=== PATIENT | male | born 1975 | race Native Hawaiian/Other Pacific Islander ===

== ENCOUNTER 2018-06-25 06:01 | Emergency (ER) | payer OTHER ==
[2018-06-25 06:16] VITALS: TEMP 97.6
[2018-06-25] MEDS ORDERED: Sodium Chloride 0.9% 1,000 ML IV ONE (06:24)
[2018-06-25] MEDS ORDERED: Morphine 4 MG/ML VIAL ONE ×2 (06:52→07:33)
[2018-06-25 06:54] LABS: BASO % 0.2 % (0.0-2.0); EOS # 0.2 K/uL (0.0-0.7); EOS % 0.9 % (0.0-4.0); HEMOGLOBIN 14.3 g/dL (12.0-18.0); LYMPH # 3.1 K/uL (1.0-4.3); LYMPH % 17.1 % (20.0-40.0); MEAN CELL VOLUME 85.4 fL (80.0-94.0); MEAN CORPUSCULAR HEMOGLOBIN 28.2 pg (27.0-31.0); MEAN CORPUSCULAR HGB CONC 33.1 g/dL (33.0-37.0); MEAN PLATELET VOLUME 10.1 fL (7.2-11.7); MONO # 0.8 K/uL (0.0-0.8); MONO % 4.6 % (0.0-10.0); NEUT # 14.1 K/uL (1.8-7.0); NEUT % 77.2 % (50.0-75.0); NRBC % 0.1 % (0.0-2.0); RBC 5.06 Mil/uL (4.40-5.90); RED CELL DISTRIBUTION WIDTH 13.3 % (11.5-14.5); WHITE BLOOD COUNT 18.3 K/uL (4.8-10.8)
[2018-06-25 06:55] LABS: URINE BILIRUBIN NEGATIVE (NEGATIVE); URINE CLARITY Clear (Clear); URINE COLOR Yellow (YELLOW); URINE GLUCOSE (UA) 3+ mg/dL (Normal); URINE LEUKOCYTE ESTERASE NEG Leu/uL (Negative); URINE PROTEIN NEGATIVE (NEGATIVE); URINE UROBILINOGEN NORMAL mg/dL (0.2-1.0)
[2018-06-25] MEDS ORDERED: Morphine 4 MG/ML VIAL IV ONE (06:57)
[2018-06-25 06:59] LABS: URINE BLOOD NEGATIVE (NEGATIVE)
--- NOTE | 2018-06-25 07:25 | C.PDOC ---
History Of Present Illness 42 year old male presents to the ED for evaluation of new onset epigastric pain since 329. Associated complaints include nausea and vomiting, non-bloody. Reports the last time he ate was at 2030 and woke up this morning with the pain. Notes pain radiates to mid back. States "we ate outside food". Denies any ETOH use. Denies any other associated complaints. PSH negative. NEW ONSET EPIG PAIN SINCE 033. LAST ATE @ 0830, AWOKE W PAIN. +RADIATION MID BACK. DENIES ETOH USE. "WE ATE OUTSIDE FOOD". +NV, NO BLOOD. NO OTHER ASSOC SX. PSH NEG EXAM MILD DIST S/P MORPHINE, NAD HEENT ANICTERIC MMM ABD MILD EPIG TEND SOFT NO R/G BACK NEG GOOD TURGOR REMAINDER NEG Time Seen by Provider: 06/25/18 07:12 Chief Complaint (Nursing): Abdominal Pain History Per: Patient History/Exam Limitations: no limitations Onset/Duration Of Symptoms: Hrs Current Symptoms Are (Timing): Still Present Location Of Pain/Discomfort: Epigastric Radiation Of Pain To:: Back Associated Symptoms: Nausea, Vomiting. denies: Fever, Chills, Diarrhea Past Medical History Reviewed: Historical Data, Nursing Documentation, Vital Signs Vital Signs: Last Vital Signs Temp 97.6 F 06/25/18 06:11 Pulse 73 06/25/18 06:11 Resp 20 06/25/18 06:11 BP 142/80 06/25/18 06:11 Pulse Ox 97 06/25/18 06:11 - Medical History PMH: Diabetes Surgical History: No Surg Hx Family History: States: No Known Family Hx - Social History Hx Alcohol Use: No Hx Substance Use: No Review Of Systems Except As Marked, All Systems Reviewed And Found Negative. Constitutional: Negative for: Fever, Chills Gastrointestinal: Positive for: Nausea, Vomiting, Abdominal Pain (epigastric). Negative for: Diarrhea Genitourinary: Negative for: Dysuria, Hematuria Physical Exam - Physical Exam Appears: Non-toxic, No Acute Distress, Other (Mild distress S/P morphine ) Skin: Warm, Dry, No Rash, Other (good turgor ) Head: Normacephalic Eye(s): bilateral: Normal Inspection, Other (anicteric) Nose: Normal Oral Mucosa: Moist Cardiovascular: Rhythm Regular Respiratory: No Rales, No Rhonchi, No Wheezing, Other (NARD) Gastrointestinal/Abdominal: Soft, Tenderness (mild epigastric tenderness ), No Distention, No Guarding, No Rebound Back: No CVA Tenderness, No Vertebral Tenderness, No Paraspinal Tenderness Extremity: Normal ROM Extremity: Bilateral: Atraumatic, Normal Color And Temperature, Normal ROM Neurological/Psych: Oriented x3, Normal Speech Gait: Steady ED Course And Treatment - Laboratory Results Result Diagrams: 06/25/18 06:50 06/25/18 07:42 ECG: Interpreted By Me ECG Rhythm: Sinus Rhythm Rate From EC O2 Sat by Pulse Oximetry: 97 Pulse Ox Interpretation: Normal - Radiology CXR: Interpreted by Me CXR Interpretation: Yes: No Acute Disease Progress - Re-Evaluation Re-evaluation Note: 06/25/18 08:53 IMPROVED COMPARED TO PRIOR. VSS. LABS WNL ADVISED DIET MODIFICATION, FU PMD 06/25/18 08:54 - Data Reviewed Data Reviewed: Lab, Diagnostic imaging, EKG, Old records Medical Decision Making Medical Decision Making: Plan - EKG - CXR - Pepcid 20mg IVP - Morphine 4mg IV - Zofran 4mg IVP - IV fluids Disposition Counseled Patient/Family Regarding: Studies Performed, Diagnosis, Need For Followup, Rx Given - Disposition Referrals: YOUR,PMD [Other] Disposition: HOME/ ROUTINE Disposition Time: 08:54 Condition: IMPROVED Prescriptions: Acetaminophen with Codeine [Tylenol with Codeine No. 3 300 mg-30 mg] 1 tab PO Q6 PRN #12 tab PRN Reason: Pain, Moderate (4-7) Famotidine [Pepcid AC] 10 mg PO QN #30 tablet Lansoprazole [Prevacid] 15 mg PO DAILY #30 ecc Ondansetron [Zofran Odt] 4 mg PO TID PRN #9 odt PRN Reason: Nausea/Vomiting Instructions: Gastritis (DC), Ulcer and Gastritis Diet Forms: [employer] (Turkmen) - Clinical Impression Clinical Impression: Vomiting, Epigastric pain - Scribe Statement The provider has reviewed the documentation as recorded by the Scribe Dorys Richey All medical record entries made by the Scribe were at my direction and perso vanessa dictated by me. I have reviewed the chart and agree that the record accurately reflects my personal performance of the history, physical exam, medical decision making, and the department course for this patient. I have also personally directed, reviewed, and agree with the discharge instructions and disposition.
[2018-06-25 07:41] VITALS: RESP 18
[2018-06-25 07:55] LABS: VENOUS BLOOD GAS BASE EXCESS -2.3 mmol/L (0.0-2.0); VENOUS BLOOD GAS PCO2 52 mmHg (40-60); VENOUS BLOOD GAS PO2 21 mm/Hg (30-55); VENOUS BLOOD PH 7.29 (7.32-7.43)
[2018-06-25 08:02] LABS: ALB/GLOB RATIO 1.5 (1.0-2.1); ALBUMIN 4.5 g/dL (3.5-5.0); ALT/SGPT 38 U/L (21-72); AST/SGOT 28 U/L (17-59); BLOOD UREA NITROGEN 14 mg/dL (9-20); CALCIUM 8.6 mg/dl (8.6-10.4); GFR NON-AFRICAN AMERICAN > 60; LIPASE 76 U/L (23-300)
[2018-06-25] MEDS ORDERED: Oxycodone/Acetaminophen 5/325 mg Tab PO STA (08:53)
[2018-06-25 08:59] VITALS: BP 109/52; PULSE 64; O2SAT 100
[2018-06-25] MEDS ORDERED: Oxycodone/Acetaminophen 5/325 mg Tab ONE (09:12)
--- NOTE | 2018-06-25 09:33 | RAD ---
Date of service: 06/25/2018 HISTORY: EPIG PAIN COMPARISON: None available. FINDINGS: LUNGS: Minor bibasilar atelectasis. PLEURA: No significant pleural effusion identified, no pneumothorax apparent. CARDIOVASCULAR: No aortic atherosclerotic calcification present. Normal cardiac size. No pulmonary vascular congestion. OSSEOUS STRUCTURES: No significant abnormalities. VISUALIZED UPPER ABDOMEN: Normal. OTHER FINDINGS: None. IMPRESSION: Minor bibasilar atelectasis.
--- NOTE | 2018-06-28 19:48 | CARD ---
APPROVED REPORT Date of service: 06/25/2018 EKG Measurement Heart [id number] <Conclusion> Normal sinus rhythm Nonspecific ST and T wave abnormality Prolonged QT Abnormal ECG
== END 2018-06-25 09:28 | disposition home or self-care (01) ==
LOC: C.ER 06:01
DX: R10.13 Epigastric pain (principal); R11.2 Nausea with vomiting, unspecified
CPT/HCPCS: 36415; 71045; 80053; 81001; 82803; 83690; 84484; 85025; 93005; 96361; 96374; 96375; 96376; 99285; J2270; J2405; J7030

== ENCOUNTER 2018-06-29 16:47 | Inpatient (IN) | payer OTHER ==
[2018-06-29 17:00] VITALS: BMI 26.2
--- NOTE | 2018-06-29 17:44 | C.PDOC ---
History Of Present Illness 42 y/o male with PMH DM presents to ED with c/o abdominal pain for 4 days. Notes the pain is epigastric and radiated to the back. Fever started today. Occasional nausea. Patient was seen at ED 4 days ago for same symptoms with labs within normal limits. Patient followed up with Dr. Hussain cabrales today who advised he come to ED for further evaluation. Normal BM today. Patient denies chest pain, sob, URI symptoms, vomiting, diarrhea, dysuria, hematuria or any other complaints at this time. <Kavitha Aaron - Last Filed: 06/29/18 18:31> History Per: Patient, Family History/Exam Limitations: no limitations Onset/Duration Of Symptoms: Days Current Symptoms Are (Timing): Still Present Associated Symptoms: Fever <Kavitha Aaron - Last Filed: 06/29/18 18:31> <Jordi Lund - Last Filed: 06/29/18 23:32> Time Seen by Provider: 06/29/18 17:34 Chief Complaint (Nursing): Fever Past Medical History Reviewed: Historical Data, Nursing Documentation, Vital Signs Vital Signs: Last Vital Signs Temp 100.6 F H 06/29/18 17:02 Pulse 98 H 06/29/18 17:02 Resp 18 06/29/18 17:02 BP 137/83 06/29/18 17:02 Pulse Ox 96 06/29/18 17:02 - Medical History PMH: Diabetes Surgical History: No Surg Hx Family History: States: No Known Family Hx - Social History Hx Alcohol Use: No Hx Substance Use: No <Kavitha Aaron - Last Filed: 06/29/18 18:31> Vital Signs: Last Vital Signs Temp 98.0 F 06/29/18 20:00 Pulse 68 06/29/18 20:00 Resp 19 06/29/18 20:00 BP 114/69 06/29/18 20:00 Pulse Ox 96 06/29/18 20:00 <Jordi Lund - Last Filed: 06/29/18 23:32> Review Of Systems Except As Marked, All Systems Reviewed And Found Negative. Constitutional: Positive for: Fever. Negative for: Chills Gastrointestinal: Positive for: Abdominal Pain. Negative for: Nausea, Vomiting, Diarrhea Genitourinary: Negative for: Dysuria, Hematuria Musculoskeletal: Negative for: Back Pain Skin: Negative for: Rash <Kavitha Aaron - Last Filed: 06/29/18 18:31> Physical Exam - Physical Exam Appears: Non-toxic, No Acute Distress Skin: Warm, Dry, No Rash Head: Atraumatic, Normacephalic Eye(s): bilateral: Normal Inspection, EOMI Nose: Normal Oral Mucosa: Moist Neck: Normal ROM, Supple Chest: Symmetrical Cardiovascular: Rhythm Regular Respiratory: Normal Breath Sounds, No Rales, No Rhonchi, No Wheezing Gastrointestinal/Abdominal: Soft, Tenderness (Epigastric), No Guarding, No Rebou nd Back: No CVA Tenderness Extremity: Normal ROM, No Pedal Edema, Capillary Refill (<2 seconds) Neurological/Psych: Oriented x3, Normal Speech, Normal Cognition <Kavitha Aaron - Last Filed: 06/29/18 18:31> ED Course And Treatment - Laboratory Results Result Diagrams: 06/29/18 18:01 06/29/18 18:01 O2 Sat by Pulse Oximetry: 96 (RA) Pulse Ox Interpretation: Normal Progress Note: Blood work, UA ordered. Tylenol, Toradol, Zofran, Protonix and IV fluids administered. Case endorsed to Dr Lund pending labs and CT. <Kavitha Aaron - Last Filed: 06/29/18 18:31> - Laboratory Results Result Diagrams: 06/29/18 18:01 06/29/18 18:01 - CT Scan/US CT abd/pel Other Rad Studies (CT/US): Read By Radiologist, Radiology Report Reviewed CT/US Interpretation: EXAM: CT Abdomen with IV contrast. CLINICAL HISTORY: EPIGASTRIC PAIN. TECHNIQUE: Axial computed tomography images of the abdomen and pelvis with intravenous contrast. 504.08 mGy-cm. CONTRAST: With; VISI 100 MLS. COMPARISON: None provided. FINDINGS: LUNG BASES: Small bilateral pleural effusions. Compressive atelectasis of the right lower lobe. LIVER: Unremarkable. GALLBLADDER AND BILE DUCTS: The gallbladder is distended, with associated wall thickening ( to 1.5 cm)and cholelithiasis. Findings are suspicious for acute cholecystitis. No biliary ductal dilatation is evident. PANCREAS: Unremarkable. SPLEEN: Unremarkable. ADRENAL GLANDS: Unremarkable. KIDNEYS, URETERS, AND BLADDER: The kidneys appear within normal limits. There is no hydronephrosis or hydroureter. No urinary calculi are seen. STOMACH AND BOWEL: Unremarkable appearance of the stomach and bowel. No evidence of bowel obstruction. No evidence suggesting enteritis or colitis. APPENDIX: No evidence of acute appendicitis on CT examination. PERITONEUM: No free fluid. No free air. LYMPH NODES: No lymphadenopathy is evident. VASCULATURE: No evidence of abdominal aortic aneurysm. BONES: No aggressive appearing osseous lesion. No acute osseous pathology evident. IMPRESSION: Findings suspicious for acute cholecystitis. Bilateral small pleural effusions. <Jordi Lund - Last Filed: 06/29/18 23:32> Disposition - Disposition Disposition Time: 18:39 <Kavitha Aaron - Last Filed: 06/29/18 18:31> Discussed With : Kyle Dawson Doctor Will See Patient In The: Hospital Counseled Patient/Family Regarding: Diagnosis - Disposition Disposition Time: 20:15 - POA Present On Arrival: None <Jordi Lund - Last Filed: 06/29/18 23:32> - Disposition Disposition: HOSPITALIZED Condition: STABLE - Clinical Impression Clinical Impression: Abdominal pain, Leukocytosis, Acute cholecystitis - PA / [employer] / Resident Statement MD/DO has reviewed & agrees with the documentation as recorded. - Scribe Statement The provider has reviewed the documentation as recorded by the Scribhollie Montgomery All medical record entries made by the Jamel were at my direction and personally dictated by me. I have reviewed the chart and agree that the record accurately reflects my personal performance of the history, physical exam, medical decision making, and the department course for this patient. I have also personally directed, reviewed, and agree with the discharge instructions and disposition. <Kavitha Aaron - Last Filed: 06/29/18 18:31>
[2018-06-29] MEDS ORDERED: Sodium Chloride 0.9% 1,000 ML IV ONE ×2 (17:45→19:31)
[2018-06-29 18:17] LABS: BASO % 0.2 % (0.0-2.0); EOS % 0.2 % (0.0-4.0); HEMOGLOBIN 13.2 g/dL (12.0-18.0); LYMPH # 1.3 K/uL (1.0-4.3); LYMPH % 6.4 % (20.0-40.0); MEAN CELL VOLUME 84.3 fL (80.0-94.0); MEAN CORPUSCULAR HEMOGLOBIN 28.7 pg (27.0-31.0); MONO # 1.7 K/uL (0.0-0.8); MONO % 8.2 % (0.0-10.0); NEUT # 17.2 K/uL (1.8-7.0); NRBC % 0.1 % (0.0-2.0); PLATELET COUNT 341 K/uL (130-400); RBC 4.61 Mil/uL (4.40-5.90); RED CELL DISTRIBUTION WIDTH 13.3 % (11.5-14.5); WHITE BLOOD COUNT 20.2 K/uL (4.8-10.8)
[2018-06-29] MEDS ORDERED: Sodium Chloride 0.9% 1,000 ML ONE ×2 (18:18→20:23)
[2018-06-29 18:28] LABS: ALT/SGPT 88 U/L (21-72); AST/SGOT 49 U/L (17-59); BLOOD UREA NITROGEN 9 mg/dL (9-20); CALCIUM 8.7 mg/dl (8.6-10.4); GFR NON-AFRICAN AMERICAN > 60; LIPASE 389 U/L (23-300); SQUAMOUS EPITHIAL < 1 /hpf (0-5); URINE BILIRUBIN NEGATIVE (NEGATIVE); URINE BLOOD 2+ (NEGATIVE); URINE CLARITY Clear (Clear); URINE COLOR Yellow (YELLOW); URINE GLUCOSE (UA) 3+ mg/dL (Normal); URINE LEUKOCYTE ESTERASE NEG Leu/uL (Negative); URINE PROTEIN 2+ mg/dL (NEGATIVE)
[2018-06-29] MEDS ORDERED: Iodixanol 320 MG/ML 100 ML BOTTLE IV ONE (18:51)
[2018-06-29 18:53] LABS: MONOCYTE 4 % (0-10); TOTAL CELLS COUNTED 100
[2018-06-29 18:54] LABS: LYMPHOCYTE 10 % (20-40); NEUTROPHIL 86 % (50-75); PLATELET ESTIMATE NORMAL (NORMAL)
[2018-06-29 18:56] LABS: BARBITURATES, UR NEGATIVE (NEGATIVE); BENZODIAZEPINES, UR NEGATIVE (NEGATIVE); PHENCYCLIDINE, UR NEGATIVE (NEGATIVE)
[2018-06-29 19:02] LABS: OPIATES, UR POSITIVE (NEGATIVE)
[2018-06-29] MEDS ORDERED: Piperacillin/Tazobact 3.375 gm 100 ML IVPB STA (20:03)
[2018-06-29] MEDS ORDERED: Piperacillin/Tazobact 3.375 gm 100 ML IVPB ONE (20:23)
[2018-06-29] MEDS: metroNIDAZOLE IV 500 mg/100 ml 500 MG/100 ML BAG IVPB STA ×2 (20:26→21:22)
[2018-06-29] MEDS ORDERED: metroNIDAZOLE IV 500 mg/100 ml 500 MG/100 ML BAG ONE (21:22)
[2018-06-29] MEDS ORDERED: Dextrose 5%-0.225% NS 1,000 ML IV ONE (21:32)
[2018-06-29] MEDS: Dextrose 5%/0.45% NS 1,000 ML IV SCH (21:39)
[2018-06-29] MEDS: (Novolin R) Insulin Human Regular 100 units/ml vial SC SCH (22:27)
--- NOTE | 2018-06-30 00:18 | CP.PCM.CON ---
History of Present Illness - History of Present Illness History of Present Illness: GENERAL SURGERY CONSULT NOTE FOR DR. ROBERSON 42yo M with PMHx of DM presents to the ED with epigastric abdominal pain. The pain began 4 days ago on Thursday. The patient had 4-5 episodes of vomiting at that time and came to the ED on 06/25. Pt was DCed from ED with prescriptions for zofran, pepcid, prevacid, tylenol with codeine. Pt went to his PMD office Dr. Sexton today and was sent to the ED. Patient denies any further episodes of nausea or vomiting. Denies diarrhea. Normal BMs. States the pain is located in epigastric area and occasionally radiates to the back. Pt states that initially his abdominal pain got better with the meds prescribed but today he didn't take any meds and the pain worsened. Patient denies any association with food or prior occurrences. PMHx: DM Surgeries: none Allergies: none Medications: metformin Social history: denies etoh, tobacco or illicit drug use Review of Systems - Review of Systems All systems: reviewed and no additional remarkable complaints except (as per HPI) Past Patient History - Infectious Disease Hx of Infectious Diseases: None - Past Social History Smoking Status: Never Smoked - ENDOCRINE/METABOLIC Hx Diabetes Mellitus Type 2: Yes - PSYCHIATRIC Hx Substance Use: No - ANESTHESIA Hx Anesthesia: No Meds Allergies/Adverse Reactions: Allergies Allergy/AdvReac Type Severity Reaction Status Date / Time No Known Allergies Allergy Verified 06/25/18 06:10 - Medications Medications: Current Medications Acetaminophen (Tylenol 325mg Tab) 650 mg PO Q4 PRN PRN Reason: Pain, moderate (4-7) Last Admin: 06/30/18 00:08 Dose: 650 mg Sodium Chloride (Sodium Chloride 0.9%) 1,000 mls @ 100 mls/hr IV .Q10H ONE Stop: 06/30/18 05:30 Last Admin: 06/29/18 20:26 Dose: 100 mls/hr Dextrose/Sodium Chloride (Dextrose 5%/0.45% Ns 1000 Ml) 1,000 mls @ 100 mls/hr IV .Q10H TONYA Last Admin: 06/29/18 21:39 Dose: 100 mls/hr Piperacillin Sod/Tazobactam Sod (Zosyn 3.375 Gm Iv Premix) 3.375 gm in 50 mls @ 100 mls/hr IVPB Q8H TONYA; Protocol Insulin Human Regular (Novolin R) 0 unit SC ACHS TONYA; Protocol Last Admin: 06/29/18 22:27 Dose: Not Given Physical Exam - Constitutional Appears: Non-toxic, No Acute Distress - Head Exam Head Exam: ATRAUMATIC, NORMAL INSPECTION - Eye Exam Eye Exam: EOMI, Normal appearance - Respiratory Exam Respiratory Exam: NORMAL BREATHING PATTERN. absent: Respiratory Distress - Cardiovascular Exam Cardiovascular Exam: +S1, +S2 - GI/Abdominal Exam GI & Abdominal Exam: Soft. absent: Distended, Firm, Guarding, Rebound, Rigid, Tenderness - Neurological Exam Neurological exam: Alert, CN II-XII Intact, Oriented x3 - Psychiatric Exam Psychiatric exam: Normal Affect, Normal Mood - Skin Skin Exam: Dry, Normal Color, Warm Results - Vital Signs Recent Vital Signs: Last Vital Signs Temp 98.0 F 06/29/18 20:00 Pulse 69 06/29/18 22:44 Resp 19 06/29/18 22:44 BP 110/64 06/29/18 22:44 Pulse Ox 98 06/29/18 22:44 - Labs Result Diagrams: 06/29/18 18:01 06/29/18 18:01 Labs: Laboratory Results - last 24 hr 06/29/18 06/29/18 06/29/18 18:01 18:01 18:01 WBC 20.2 H RBC 4.61 Hgb 13.2 Hct 38.8 MCV 84.3 MCH 28.7 MCHC 34.0 RDW 13.3 Plt Count 341 MPV 9.0 Neut % (Auto) 85.0 H Lymph % (Auto) 6.4 L Logan % (Auto) 8.2 Eos % (Auto) 0.2 Baso % (Auto) 0.2 Neut # (Auto) 17.2 H Lymph # (Auto) 1.3 Logan # (Auto) 1.7 H Eos # (Auto) 0.0 Baso # (Auto) 0.0 Neutrophils % (Manual) 86 H Lymphocytes % (Manual) 10 L Monocytes % (Manual) 4 Platelet Estimate Normal Sodium 134 Potassium 3.6 Chloride 100 Carbon Dioxide 22 Anion Gap 16 BUN 9 Creatinine 0.8 Est GFR ( Amer) > 60 Est GFR (Non-Af Amer) > 60 POC Glucose (mg/dL) Random Glucose 231 H Lactic Acid Calcium 8.7 Total Bilirubin 1.3 AST 49 ALT 88 H D Alkaline Phosphatase 258 H D Total Protein 7.8 Albumin 4.0 Globulin 3.8 Albumin/Globulin Ratio 1.0 Lipase 389 H Urine Color Yellow Urine Clarity Clear Urine pH 6.0 Ur Specific [place] 1.026 Urine Protein 2+ H Urine Glucose (UA) 3+ H Urine Ketones 1+ H Urine Blood 2+ H Urine Nitrate Negative Urine Bilirubin Negative Urine Urobilinogen 4.0 Ur Leukocyte Esterase Neg Urine WBC (Auto) 1 Urine RBC (Auto) 14 H Ur Squamous Epith Cells < 1 Urine Opiates Screen Urine Methadone Screen Ur Barbiturates Screen Ur Phencyclidine Scrn Ur Amphetamines Screen U Benzodiazepines Scrn U Oth Cocaine Metabols U Cannabinoids Screen Influenza Typ A,B (EIA) 06/29/18 06/29/18 06/29/18 18:01 18:05 19:22 WBC RBC Hgb Hct MCV MCH MCHC RDW Plt Count MPV Neut % (Auto) Lymph % (Auto) Logan % (Auto) Eos % (Auto) Baso % (Auto) Neut # (Auto) Lymph # (Auto) Logan # (Auto) Eos # (Auto) Baso # (Auto) Neutrophils % (Manual) Lymphocytes % (Manual) Monocytes % (Manual) Platelet Estimate Sodium Potassium Chloride Carbon Dioxide Anion Gap BUN Creatinine Est GFR ( Amer) Est GFR (Non-Af Amer) POC Glucose (mg/dL) Random Glucose Lactic Acid 0.8 Calcium Total Bilirubin AST ALT Alkaline Phosphatase Total Protein Albumin Globulin Albumin/Globulin Ratio Lipase Urine Color Urine Clarity Urine pH Ur Specific [place] Urine Protein Urine Glucose (UA) Urine Ketones Urine Blood Urine Nitrate Urine Bilirubin Urine Urobilinogen Ur Leukocyte Esterase Urine WBC (Auto) Urine RBC (Auto) Ur Squamous Epith Cells Urine Opiates Screen Positive H Urine Methadone Screen Negative Ur Barbiturates Screen Negative Ur Phencyclidine Scrn Negative Ur Amphetamines Screen Negative U Benzodiazepines Scrn Negative U Oth Cocaine Metabols Negative U Cannabinoids Screen Negative Influenza Typ A,B (EIA) Negative for flu a/b 06/29/18 22:25 WBC RBC Hgb Hct MCV MCH MCHC RDW Plt Count MPV Neut % (Auto) Lymph % (Auto) Logan % (Auto) Eos % (Auto) Baso % (Auto) Neut # (Auto) Lymph # (Auto) Logan # (Auto) Eos # (Auto) Baso # (Auto) Neutrophils % (Manual) Lymphocytes % (Manual) Monocytes % (Manual) Platelet Estimate Sodium Potassium Chloride Carbon Dioxide Anion Gap BUN Creatinine Est GFR ( Amer) Est GFR (Non-Af Amer) POC Glucose (mg/dL) 206 H Random Glucose Lactic Acid Calcium Total Bilirubin AST ALT Alkaline Phosphatase Total Protein Albumin Globulin Albumin/Globulin Ratio Lipase Urine Color Urine Clarity Urine pH Ur Specific [place] Urine Protein Urine Glucose (UA) Urine Ketones Urine Blood Urine Nitrate Urine Bilirubin Urine Urobilinogen Ur Leukocyte Esterase Urine WBC (Auto) Urine RBC (Auto) Ur Squamous Epith Cells Urine Opiates Screen Urine Methadone Screen Ur Barbiturates Screen Ur Phencyclidine Scrn Ur Amphetamines Screen U Benzodiazepines Scrn U Oth Cocaine Metabols U Cannabinoids Screen Influenza Typ A,B (EIA) Assessment & Plan - Assessment and Plan (Free Text) Assessment: 42yo M with PMHx of DM presents with epigastric abdominal pain and found to have cholecystitis. - Tmax 100.6 - Leukocytosis WBC 20.2 - Lipase mildly elevated 389 - CT: distended gallbladder with wall thickening and stones - US: cholelithiasis, negative sonographic De La Vega sign, thickened gallbladder wall - NPO - Plan for OR Wed for laparoscopic cholecystectomy, possible open - Procedure explained in detail to patient and , including risks, benefits and alternatives. All questions were answered. Written consent obtained - Discussed plan with Dr. Onesimo Hendrix PGY-4
[2018-06-30] MEDS: Piperacill/Tazo 3.375gm in Dex 3.375 GM/50 ML BAG IVPB SCH ×2 (04:35→17:00)
[2018-06-30 05:10] LABS: BASO # 0.1 K/uL (0.0-0.2); BASO % 0.4 % (0.0-2.0); EOS # 0.2 K/uL (0.0-0.7); EOS % 0.9 % (0.0-4.0); HEMOGLOBIN 12.2 g/dL (12.0-18.0); LYMPH # 1.5 K/uL (1.0-4.3); LYMPH % 7.5 % (20.0-40.0); MEAN CELL VOLUME 84.8 fL (80.0-94.0); MEAN CORPUSCULAR HGB CONC 33.1 g/dL (33.0-37.0); MEAN PLATELET VOLUME 8.8 fL (7.2-11.7); MONO % 9.9 % (0.0-10.0); NEUT # 16.3 K/uL (1.8-7.0); NEUT % 81.3 % (50.0-75.0); PLATELET COUNT 298 K/uL (130-400); RBC 4.34 Mil/uL (4.40-5.90); RED CELL DISTRIBUTION WIDTH 13.4 % (11.5-14.5)
[2018-06-30 05:18] LABS: INR 1.3
[2018-06-30 05:26] LABS: ALB/GLOB RATIO 1.1 (1.0-2.1); ALBUMIN 3.5 g/dL (3.5-5.0); ALT/SGPT 66 U/L (21-72); AST/SGOT 47 U/L (17-59); BLOOD UREA NITROGEN 8 mg/dL (9-20); CALCIUM 7.8 mg/dl (8.6-10.4); GFR NON-AFRICAN AMERICAN > 60
[2018-06-30 05:29] LABS: BANDS 2 % (0-2); EOSINOPHIL 1 % (0-4); LYMPHOCYTE 7 % (20-40); MONOCYTE 14 % (0-10); NEUTROPHIL 75 % (50-75); REACTIVE LYMPHOCYTES 1 % (0-0); TOTAL CELLS COUNTED 100
[2018-06-30 05:30] LABS: PLATELET ESTIMATE NORMAL (NORMAL)
[2018-06-30] MEDS: (Novolin R) Insulin Human Regular 100 units/ml vial SC SCH ×4 (07:40→21:07)
[2018-06-30] MEDS: Dextrose 5%/0.45% NS 1,000 ML IV SCH ×2 (07:44→18:07)
[2018-06-30] MEDS ORDERED: Dextrose 5%/0.45% NS 1,000 ML IV ONE (07:46)
--- NOTE | 2018-06-30 08:16 | CT ---
Date of service: 06/29/2018 PROCEDURE: CT Abdomen and Pelvis with intravenous contrast HISTORY: Abdominal pain COMPARISON: None. TECHNIQUE: Multiple contiguous axial images were performed through the abdomen and pelvis with the use of intravenous contrast. Subsequently, sagittal and coronal reformatted images were obtained. radiation dose: Total exam DLP = 504.08 mGy-cm. This CT exam was performed using one or more of the following dose reduction techniques: Automated exposure control, adjustment of the mA and/or kV according to patient size, and/or use of iterative reconstruction technique. FINDINGS: LOWER THORAX: Small bilateral pleural effusions. Scattered consolidation atelectasis at the lung bases and right middle lobe and lingula. LIVER: Punctate hypodensity in the right hepatic lobe, too small to adequately characterize. Mild fatty infiltration of the liver. Relative areas of increased attenuation seen within the periphery of the right hepatic lobe which may represent transient hepatic attenuation defects. Additional etiologies not excluded. These may be better evaluated with multiphasic contrast enhanced CT or MR if clinically indicated. GALLBLADDER AND BILE DUCTS: Cholelithiasis with a distended gallbladder and markedly thickened gallbladder wall with associated pericholecystic fluid suggestive for an acute cholecystitis. PANCREAS: Unremarkable. No gross lesion or ductal dilatation. SPLEEN: Unremarkable. ADRENALS: Unremarkable. No mass. KIDNEYS AND URETERS: Punctate hypodensity in the upper pole of the right kidney, too small to adequately characterize. VASCULATURE: Unremarkable. No aortic aneurysm. No aortic atherosclerotic calcification or mural plaque present. BOWEL: Fecal retention in the colon. Focal thickening and mild dilatation at the duodenal sweep likely reactive from adjacent cholecystitis. APPENDIX: Unremarkable. Normal appendix. PERITONEUM: Unremarkable. No free fluid. No free air. LYMPH NODES: Shotty para-aortic and mesenteric lymph nodes in the mid abdomen BLADDER: Unremarkable. REPRODUCTIVE: Unremarkable. BONES: Mild scoliotic curvature of the spine. OTHER FINDINGS: None. IMPRESSION: 1. Findings concerning for acute cholecystitis. 2. Bilateral pleural effusions with scattered consolidation in both lungs. 3. Punctate hypodensity in the right hepatic lobe, too small to adequately characterize. Mild fatty infiltration of the liver. Relative areas of increased attenuation seen within the periphery of the right hepatic lobe which may represent transient hepatic attenuation defects. Additional etiologies not excluded. These may be better evaluated with multiphasic contrast enhanced CT or MR if clinically indicated. 4.Focal thickening and mild dilatation at the duodenal sweep likely reactive from adjacent cholecystitis. Additional findings as above. These findings were preliminarily reported at 7:54 p.m. on 06/29/[address] Kristen Liu from [facility].
--- NOTE | 2018-06-30 08:58 | CP.PCM.HP ---
History of Present Illness - History of Present Illness History of Present Illness: CC: Abd pain 42 y/o male with NIDDM. Patient has RUQ / epig pain x 4 days. Pt sent to ER and noted to have Ac cholecystitis w/ GB stone by CT. Pt admitted Present on Admission - Present on Admission Any Indicators Present on Admission: Yes History of DVT/PE: No Urinary Catheter: No Decubitus Ulcer Present: No Review of Systems - Review of Systems Systems not reviewed;Unavailable: Altered Mental Status - Constitutional Constitutional: Anorexia, Fever, Malaise, Weakness. absent: Fatigue, Night Sweats - EENT Eyes: absent: Spots in Vision, Tunnel Vision Ears: absent: Decreased Hearing, Ear Discharge, Abnormal Hearing, Dizziness Nose/Mouth/Throat: absent: Nasal Congestion, Nose Pain, Dry Mouth, Halitosis, Mouth Pain, Odynophagia, Sore Throat - Cardiovascular Cardiovascular: absent: Chest Pain, Diaphoresis, Dyspnea, Leg Edema, Palpitations - Respiratory Respiratory: absent: Cough, Dyspnea, Excessive Mucous Production - Gastrointestinal Gastrointestinal: absent: Abdominal Pain, Dyspepsia, Excessive Flatus, Loose Stools, Nausea, Vomiting - Genitourinary Genitourinary: absent: Difficulty Urinating, Dysuria, Urinary Urgency - Musculoskeletal Musculoskeletal: absent: Atrophy, Back Pain, Muscle Weakness, Neck Pain - Integumentary Integumentary: absent: Rash, Striae, Swelling - Neurological Neurological: absent: Abnormal Gait, Confusion, Focal Weakness Past Patient History - Infectious Disease Hx of Infectious Diseases: None - Past Social History Smoking Status: Never Smoked - ENDOCRINE/METABOLIC Hx Diabetes Mellitus Type 2: Yes - PSYCHIATRIC Hx Substance Use: No - ANESTHESIA Hx Anesthesia: No Meds Allergies/Adverse Reactions: Allergies Allergy/AdvReac Type Severity Reaction Status Date / Time No Known Allergies Allergy Verified 06/25/18 06:10 Physical Exam - Constitutional Appears: Well - Head Exam Head Exam: NORMAL INSPECTION - Eye Exam Eye Exam: Normal appearance - ENT Exam ENT Exam: Mucous Membranes Moist - Neck Exam Neck exam: Positive for: Full Rom. Negative for: Lymphadenopathy, Tenderness - Respiratory Exam Respiratory Exam: Decreased Breath Sounds. absent: Rales, Rhonchi, Wheezes - Cardiovascular Exam Cardiovascular Exam: REGULAR RHYTHM, +S1, +S2. absent: Gallop, Systolic Murmur - GI/Abdominal Exam GI & Abdominal Exam: Soft. absent: Guarding, Tenderness - Extremities Exam Extremities exam: Positive for: full ROM, normal capillary refill. Negative for: calf tenderness, joint swelling, pedal edema Results - Vital Signs Recent Vital Signs: Last Vital Signs Temp 98.6 F 06/30/18 06:01 Pulse 71 06/30/18 06:01 Resp 16 06/30/18 06:01 BP 114/72 06/30/18 06:01 Pulse Ox 97 06/30/18 06:01 - Labs Result Diagrams: 06/30/18 05:07 06/30/18 05:07 Labs: Laboratory Results - last 24 hr 06/29/18 06/29/18 06/29/18 18:01 18:01 18:01 WBC 20.2 H RBC 4.61 Hgb 13.2 Hct 38.8 MCV 84.3 MCH 28.7 MCHC 34.0 RDW 13.3 Plt Count 341 MPV 9.0 Neut % (Auto) 85.0 H Lymph % (Auto) 6.4 L Ross % (Auto) 8.2 Eos % (Auto) 0.2 Baso % (Auto) 0.2 Neut # (Auto) 17.2 H Lymph # (Auto) 1.3 Ross # (Auto) 1.7 H Eos # (Auto) 0.0 Baso # (Auto) 0.0 Neutrophils % (Manual) 86 H Band Neutrophils % Lymphocytes % (Manual) 10 L Reactive Lymphs % Monocytes % (Manual) 4 Eosinophils % (Manual) Platelet Estimate Normal PT INR APTT Sodium 134 Potassium 3.6 Chloride 100 Carbon Dioxide 22 Anion Gap 16 BUN 9 Creatinine 0.8 Est GFR ( Amer) > 60 Est GFR (Non-Af Amer) > 60 POC Glucose (mg/dL) Random Glucose 231 H Lactic Acid Calcium 8.7 Total Bilirubin 1.3 AST 49 ALT 88 H D Alkaline Phosphatase 258 H D Total Protein 7.8 Albumin 4.0 Globulin 3.8 Albumin/Globulin Ratio 1.0 Lipase 389 H Urine Color Yellow Urine Clarity Clear Urine pH 6.0 Ur Specific [place] 1.026 Urine Protein 2+ H Urine Glucose (UA) 3+ H Urine Ketones 1+ H Urine Blood 2+ H Urine Nitrate Negative Urine Bilirubin Negative Urine Urobilinogen 4.0 Ur Leukocyte Esterase Neg Urine WBC (Auto) 1 Urine RBC (Auto) 14 H Ur Squamous Epith Cells < 1 Urine Opiates Screen Urine Methadone Screen Ur Barbiturates Screen Ur Phencyclidine Scrn Ur Amphetamines Screen U Benzodiazepines Scrn U Oth Cocaine Metabols U Cannabinoids Screen Influenza Typ A,B (EIA) Blood Type Antibody Screen 06/29/18 06/29/18 06/29/18 18:01 18:05 19:22 WBC RBC Hgb Hct MCV MCH MCHC RDW Plt Count MPV Neut % (Auto) Lymph % (Auto) Ross % (Auto) Eos % (Auto) Baso % (Auto) Neut # (Auto) Lymph # (Auto) Ross # (Auto) Eos # (Auto) Baso # (Auto) Neutrophils % (Manual) Band Neutrophils % Lymphocytes % (Manual) Reactive Lymphs % Monocytes % (Manual) Eosinophils % (Manual) Platelet Estimate PT INR APTT Sodium Potassium Chloride Carbon Dioxide Anion Gap BUN Creatinine Est GFR ( Amer) Est GFR (Non-Af Amer) POC Glucose (mg/dL) Random Glucose Lactic Acid 0.8 Calcium Total Bilirubin AST ALT Alkaline Phosphatase Total Protein Albumin Globulin Albumin/Globulin Ratio Lipase Urine Color Urine Clarity Urine pH Ur Specific [place] Urine Protein Urine Glucose (UA) Urine Ketones Urine Blood Urine Nitrate Urine Bilirubin Urine Urobilinogen Ur Leukocyte Esterase Urine WBC (Auto) Urine RBC (Auto) Ur Squamous Epith Cells Urine Opiates Screen Positive H Urine Methadone Screen Negative Ur Barbiturates Screen Negative Ur Phencyclidine Scrn Negative Ur Amphetamines Screen Negative U Benzodiazepines Scrn Negative U Oth Cocaine Metabols Negative U Cannabinoids Screen Negative Influenza Typ A,B (EIA) Negative for flu a/b Blood Type Antibody Screen 06/29/18 06/30/18 06/30/18 22:25 05:07 05:07 WBC 20.0 H RBC 4.34 L Hgb 12.2 Hct 36.8 MCV 84.8 MCH 28.0 MCHC 33.1 RDW 13.4 Plt Count 298 MPV 8.8 Neut % (Auto) 81.3 H Lymph % (Auto) 7.5 L Ross % (Auto) 9.9 Eos % (Auto) 0.9 Baso % (Auto) 0.4 Neut # (Auto) 16.3 H Lymph # (Auto) 1.5 Ross # (Auto) 2.0 H Eos # (Auto) 0.2 Baso # (Auto) 0.1 Neutrophils % (Manual) 75 Band Neutrophils % 2 Lymphocytes % (Manual) 7 L Reactive Lymphs % 1 H Monocytes % (Manual) 14 H Eosinophils % (Manual) 1 Platelet Estimate Normal PT INR APTT Sodium 136 Potassium 3.3 L Chloride 104 Carbon Dioxide 23 Anion Gap 12 BUN 8 L Creatinine 0.8 Est GFR ( Amer) > 60 Est GFR (Non-Af Amer) > 60 POC Glucose (mg/dL) 206 H Random Glucose 218 H Lactic Acid Calcium 7.8 L Total Bilirubin 1.0 AST 47 ALT 66 Alkaline Phosphatase 249 H Total Protein 6.8 Albumin 3.5 Globulin 3.3 Albumin/Globulin Ratio 1.1 Lipase Urine Color Urine Clarity Urine pH Ur Specific [place] Urine Protein Urine Glucose (UA) Urine Ketones Urine Blood Urine Nitrate Urine Bilirubin Urine Urobilinogen Ur Leukocyte Esterase Urine WBC (Auto) Urine RBC (Auto) Ur Squamous Epith Cells Urine Opiates Screen Urine Methadone Screen Ur Barbiturates Screen Ur Phencyclidine Scrn Ur Amphetamines Screen U Benzodiazepines Scrn U Oth Cocaine Metabols U Cannabinoids Screen Influenza Typ A,B (EIA) Blood Type Antibody Screen 06/30/18 06/30/18 06/30/18 05:07 05:20 07:29 WBC RBC Hgb Hct MCV MCH MCHC RDW Plt Count MPV Neut % (Auto) Lymph % (Auto) Ross % (Auto) Eos % (Auto) Baso % (Auto) Neut # (Auto) Lymph # (Auto) Ross # (Auto) Eos # (Auto) Baso # (Auto) Neutrophils % (Manual) Band Neutrophils % Lymphocytes % (Manual) Reactive Lymphs % Monocytes % (Manual) Eosinophils % (Manual) Platelet Estimate PT 14.0 H INR 1.3 APTT 35 H Sodium Potassium Chloride Carbon Dioxide Anion Gap BUN Creatinine Est GFR ( Amer) Est GFR (Non-Af Amer) POC Glucose (mg/dL) 215 H Random Glucose Lactic Acid Calcium Total Bilirubin AST ALT Alkaline Phosphatase Total Protein Albumin Globulin Albumin/Globulin Ratio Lipase Urine Color Urine Clarity Urine pH Ur Specific [place] Urine Protein Urine Glucose (UA) Urine Ketones Urine Blood Urine Nitrate Urine Bilirubin Urine Urobilinogen Ur Leukocyte Esterase Urine WBC (Auto) Urine RBC (Auto) Ur Squamous Epith Cells Urine Opiates Screen Urine Methadone Screen Ur Barbiturates Screen Ur Phencyclidine Scrn Ur Amphetamines Screen U Benzodiazepines Scrn U Oth Cocaine Metabols U Cannabinoids Screen Influenza Typ A,B (EIA) Blood Type B POSITIVE Antibody Screen Negative - EKG Data EKG Interpreted by: Other (Not done) Assessment & Plan - Assessment and Plan (Free Text) Assessment: Acute Cholecystitis; NIDDM For prob surgery Supportive care
[2018-06-30 09:04] LABS: GAMMA GLUTAMYL TRANSPEPTIDASE 191 U/L (8-78)
--- NOTE | 2018-06-30 09:17 | US ---
Date of service: 06/29/2018 HISTORY: upper abd pain/ leucocytosis COMPARISON: None. TECHNIQUE: Sonographic evaluation of the right upper quadrant of the abdomen. FINDINGS: LIVER: Measures 19.0 cm in length. Diffusely increased echogenicity of the liver parenchyma. Consistent with fatty infiltration. Smooth contour. No mass. No biliary dilatation. Normal hepatopetal portal venous flow. GALLBLADDER: No evidence of cholelithiasis. Punctate echogenic foci are seen along the gallbladder wall with ring down artifact likely representing adenomyosis. No mobile calculi are demonstrated. There is diffuse thickening of the gallbladder wall, nonspecific. Minimal pericholecystic fluid is demonstrated. The gallbladder wall measures up to 10 mm in width. This is a nonspecific finding and may be seen in cholecystitis as well as hepatitis, pancreatitis, hepatic cirrhosis, etc. Negative sonographic De La Vega sign. Normal hepatopetal portal venous flow. COMMON BILE DUCT: Measures 5 mm. No stones. No dilatation. PANCREAS: Limited visualization due to overlying bowel gas. RIGHT KIDNEY: Measures 11.4 cm in length. Normal echogenicity. No calculus, mass, or hydronephrosis. AORTA: No aneurysmal dilatation. IVC: Unremarkable. OTHER FINDINGS: None . IMPRESSION: Probable adenomyosis of the gallbladder. Diffuse thickening of the gallbladder wall, nonspecific. Minimal pericholecystic fluid. No cholelithiasis. Negative sonographic De La Vega sign. Fatty infiltration of the liver. Findings are equivocal for cholecystitis particularly in the absence of visualized mobile calculi. If clinically warranted consider correlation with radionuclide hepatobiliary scan. The preliminary findings for this examination were reported by [facility] at 11:29 p.m. on 06/29/2018. There is discordance of this report with the preliminary findings. There is no evidence of mobile calculi within the gallbladder on this examination.
[2018-06-30] MEDS ORDERED: Bupivacaine-Epi 0.5%-1:200,000 PF Inj ONE (10:00)
[2018-06-30] MEDS ORDERED: ceFAZolin 1 gm in NS 2 GM/200 ML BAG IVPB ONE (10:00)
[2018-06-30] MEDS ORDERED: Rocuronium 10 mg/ml (5 ml) ONE (10:21)
[2018-06-30] MEDS ORDERED: Propofol 10 mg/ml Inj (20 ML) ONE (10:21)
[2018-06-30] MEDS ORDERED: Succinylcholine Chloride 20 mg/ml Syr (5 ml) IV ONE ×2 (10:21→10:39)
[2018-06-30] MEDS ORDERED: Midazolam 2 MG/2 ML VIAL ONE (10:22)
[2018-06-30] MEDS ORDERED: Neostigmine Methylsulfate 3mg/3ml Syringe IV ONE (12:48)
[2018-06-30] MEDS ORDERED: HYDROmorphone 0.5 mg/0.5 ml ISec IVP PRN (12:56)
--- NOTE | 2018-06-30 13:07 | PCM.SURG1 ---
Surgeon's Initial Post Op Note - Surgeon's Notes Surgeon: Dr. Echols Creamery Worker: Dr. Aly PGY-3 Type of Anesthesia: General Endo Pre-Operative Diagnosis: Acute/Chronic Cholecystitis Operative Findings: See operative report Post-Operative Diagnosis: Same Operation Performed: Laparoscopic Cholecystectomy Specimen/Specimens Removed: Gallbladder Estimated Blood Loss: EBL {In ML}: 25 Blood Products Given: N/A Drains Used: Drake Post-Op Condition: Good Date of Surgery/Procedure: 06/30/18 Time of Surgery/Procedure: 13:06
[2018-06-30] MEDS ORDERED: (Novolin R) Insulin Human Regular 100 units/ml vial IVP ONE (13:15)
[2018-06-30] MEDS ORDERED: Oxycodone/Acetaminophen 5/325 mg Tab PO PRN (13:52)
[2018-06-30] MEDS ORDERED: Lactated Ringer's 1,000 ML IV ONE (14:50)
[2018-07-01] MEDS: Piperacill/Tazo 3.375gm in Dex 3.375 GM/50 ML BAG IVPB SCH ×3 (00:30→17:17)
[2018-07-01 02:10] VITALS: RESP 20; O2SAT 95
[2018-07-01] MEDS: Dextrose 5%/0.45% NS 1,000 ML IV SCH ×2 (03:15→05:25)
[2018-07-01] MEDS ORDERED: Diphenhydramine 1% Cream (1 oz) TOP ONE (04:32)
[2018-07-01 07:28] LABS: BASO # 0.2 K/uL (0.0-0.2); BASO % 1.2 % (0.0-2.0); EOS # 0.3 K/uL (0.0-0.7); HEMOGLOBIN 11.2 g/dL (12.0-18.0); LYMPH # 1.8 K/uL (1.0-4.3); LYMPH % 13.8 % (20.0-40.0); MEAN CORPUSCULAR HEMOGLOBIN 28.9 pg (27.0-31.0); MEAN CORPUSCULAR HGB CONC 34.4 g/dL (33.0-37.0); MEAN PLATELET VOLUME 8.5 fL (7.2-11.7); MONO # 1.1 K/uL (0.0-0.8); MONO % 8.8 % (0.0-10.0); NEUT # 9.5 K/uL (1.8-7.0); NEUT % 74.2 % (50.0-75.0); RBC 3.86 Mil/uL (4.40-5.90); RED CELL DISTRIBUTION WIDTH 13.5 % (11.5-14.5); WHITE BLOOD COUNT 12.8 K/uL (4.8-10.8)
[2018-07-01 08:14] LABS: ALBUMIN 2.9 g/dL (3.5-5.0); ALT/SGPT 108 U/L (21-72); AST/SGOT 90 U/L (17-59); BLOOD UREA NITROGEN 8 mg/dL (9-20); CALCIUM 7.5 mg/dl (8.6-10.4); GFR NON-AFRICAN AMERICAN > 60
[2018-07-01] MEDS: (Novolin R) Insulin Human Regular 100 units/ml vial SC SCH ×3 (08:26→17:16)
--- NOTE | 2018-07-01 09:13 | CP.PCM.PN ---
Subjective - Date & Time of Evaluation Date of Evaluation: 07/01/18 Time of Evaluation: 07:00 - Subjective Subjective: Surgery: Dr. Echols Pt seen and examined. No acute overnight events. States he feels well this AM and pain is well controlled. He was able to tolerate liquids last night without nausea/vomiting. He denies fevers/chills. Objective - Vital Signs/Intake and Output Vital Signs (last 24 hours): Temp Pulse Resp BP Pulse Ox 98.2 F 70 20 126/73 95 07/01/18 07:48 07/01/18 07:48 07/01/18 07:48 07/01/18 07:48 07/01/18 07:48 Intake and Output: 07/01/18 07/01/18 06:59 18:59 Intake Total 1900 Output Total 1565 Balance 335 - Medications Medications: Current Medications Acetaminophen (Tylenol 325mg Tab) 650 mg PO Q4 PRN PRN Reason: Pain, moderate (4-7) Last Admin: 06/30/18 00:08 Dose: 650 mg Piperacillin Sod/Tazobactam Sod (Zosyn 3.375 Gm Iv Premix) 3.375 gm in 50 mls @ 100 mls/hr IVPB Q8H [facility]; Protocol Last Admin: 07/01/18 00:30 Dose: 100 mls/hr Insulin Human Regular (Novolin R) 0 unit SC ACHS [facility]; Protocol Last Admin: 07/01/18 08:26 Dose: Not Given Ketorolac Tromethamine (Toradol) 30 mg IVP Q6 PRN PRN Reason: Pain, moderate (4-7) Last Admin: 07/01/18 08:23 Dose: 30 mg Ondansetron HCl (Zofran Inj) 4 mg IVP Q4 PRN PRN Reason: Nausea/Vomiting Oxycodone/Acetaminophen (Percocet 5/325 Mg Tab) 1 tab PO Q4H PRN PRN Reason: Pain, moderate (4-7) Stop: 07/03/18 13:53 Last Admin: 06/30/18 20:29 Dose: 1 tab Potassium Chloride (K-Dur 20 Meq Er Tab) 20 meq PO DAILY [facility] - Labs Labs: 07/01/18 07:18 07/01/18 07:18 PT 14.0 SECONDS (9.7-12.2) H 06/30/18 05:07 INR 1.3 06/30/18 05:07 APTT 35 SECONDS (21-34) H 06/30/18 05:07 - Constitutional Appears: Well, No Acute Distress - Head Exam Head Exam: ATRAUMATIC, NORMOCEPHALIC - Eye Exam Eye Exam: Normal appearance - ENT Exam ENT Exam: Mucous Membranes Moist - Respiratory Exam Respiratory Exam: NORMAL BREATHING PATTERN - Cardiovascular Exam Cardiovascular Exam: RRR - GI/Abdominal Exam GI & Abdominal Exam: Soft, Tenderness (around incisions, incisions C/D/I ) - Extremities Exam Extremities Exam: Full ROM - Neurological Exam Neurological Exam: Alert, Awake, Oriented x3 - Skin Skin Exam: Dry, Warm Assessment and Plan - Assessment and Plan (Free Text) Assessment: 42M s/p lap cholecystectomy; POD#1 Plan: - advance diet - pt clear for DC from surgical standpoint - f/u with Dr. Echols in the office on thursday for sanford drain removal - no heavy lifting > 15lbs for 4-6 weeks - d/w Dr. Onesimo Aly
[2018-07-01] MEDS ORDERED: Iohexol 240 (50 ml) ONE (09:59)
[2018-07-01] MEDS ORDERED: Potassium Chloride 20 mEq ER Tab PO SCH (10:00)
--- NOTE | 2018-07-01 14:33 | MRI ---
MRI abdomen without/with IV contrast MRCP Indication: Cholecystitis, elevated ALKP, CBD stone Technique: Multiplanar, multi sequence magnetic resonance images of the abdomen were obtained without and with the administration of intravenous gadolinium using a multi phase abdomen protocol. Rotating maximum intensity projection images of the biliary system were generated. A total of 1070 images submitted for review Comparison: Gallbladder ultrasound performed 06/29/18, CT of the abdomen and pelvis with IV contrast performed 06/29/18 Findings: Several sequences degraded by motion artifact. Cholecystectomy. There is no intrahepatic biliary ductal dilatation. The common bile duct appears within normal limits in caliber and tapers distally. The pancreatic duct appears within normal limits of caliber. No filling defects are seen in the common bile duct or pancreatic duct. The liver, spleen, pancreas, and adrenal glands appear unremarkable. The kidneys enhance symmetrically. No evidence of hydronephrosis or obstructing calculus. No enlarged abdominal lymph nodes are appreciated. Limited views of the inferior thorax in straight small right greater than left pleural effusions and associated consolidations. Impression: Cholecystectomy. The common bile duct appears within normal limits of caliber without evidence of focal filling defect appreciated. Small right greater than left pleural effusions and associated consolidations.
--- NOTE | 2018-07-01 15:00 | CP.PCM.CON ---
History of Present Illness - History of Present Illness History of Present Illness: This is 42 year old man admitted 06/29/2018 with abdominal pain.' Patient presented to [facility] on 06/29/2018 with a four day history of epigastric abdominal pain radiating to the back, acoompanied by occasional nausea and vomiting. He also complained of fever on the day of admission. He denied having chills. On valuationin the ER, he was febrile to 100.6 degrees with stable BP and heart rate. There was tenderness to palpation in the epigastrium. The WBC count was elevated at 20,200. LFTs were as follows: AST 49, ALT 88, ALKP 258, TBII 1.3. CT scan showed a distended, thick-walled GB containing stones, suspicious for acute cholecystitis. Laparoscopic cholecystectomy was performed on 06/30/2018. MRCP today showed a normal caliber CBD without CBD stones. Review of Systems - Review of Systems All systems: reviewed and no additional remarkable complaints except - Constitutional Constitutional: Fever. absent: Chills - Gastrointestinal Gastrointestinal: Abdominal Pain, Nausea, Vomiting. absent: Diarrhea - Genitourinary Genitourinary: absent: Dysuria, Hematuria - Musculoskeletal Musculoskeletal: absent: Back Pain - Integumentary Integumentary: absent: Rash Past Patient History - Infectious Disease Hx of Infectious Diseases: None - Past Medical History & Family History Past Medical History?: Yes - Past Social History Smoking Status: Never Smoked - CARDIAC Hx Cardiac Disorders: No - PULMONARY Hx Respiratory Disorders: No - NEUROLOGICAL Hx Neurological Disorder: No - HEENT Hx HEENT Problems: No - RENAL Hx Chronic Kidney Disease: No - ENDOCRINE/METABOLIC Hx Endocrine Disorders: Yes Hx Diabetes Mellitus Type 2: Yes - HEMATOLOGICAL/ONCOLOGICAL Hx Blood Disorders: No - INTEGUMENTARY Hx Dermatological Problems: No - MUSCULOSKELETAL/RHEUMATOLOGICAL Hx Musculoskeletal Disorders: No Hx Falls: No - GASTROINTESTINAL Hx Gall Bladder Disease: No - GENITOURINARY/GYNECOLOGICAL Hx Genitourinary Disorders: No - PSYCHIATRIC Hx Psychophysiologic Disorder: No Hx Substance Use: No - SURGICAL HISTORY Hx Cholecystectomy: Yes (post Lap Nathaly 06/30/2018) - ANESTHESIA Hx Anesthesia: Yes Hx Anesthesia Reactions: No Meds Allergies/Adverse Reactions: Allergies Allergy/AdvReac Type Severity Reaction Status Date / Time No Known Allergies Allergy Verified 06/25/18 06:10 - Medications Medications: Current Medications Acetaminophen (Tylenol 325mg Tab) 650 mg PO Q4 PRN PRN Reason: Pain, moderate (4-7) Last Admin: 06/30/18 00:08 Dose: 650 mg Piperacillin Sod/Tazobactam Sod (Zosyn 3.375 Gm Iv Premix) 3.375 gm in 50 mls @ 100 mls/hr IVPB Q8H [facility]; Protocol Last Admin: 07/01/18 10:37 Dose: 100 mls/hr Insulin Human Regular (Novolin R) 0 unit SC ACHS [facility]; Protocol Last Admin: 07/01/18 12:24 Dose: 4 unit Ketorolac Tromethamine (Toradol) 30 mg IVP Q6 PRN PRN Reason: Pain, moderate (4-7) Last Admin: 07/01/18 08:23 Dose: 30 mg Ondansetron HCl (Zofran Inj) 4 mg IVP Q4 PRN PRN Reason: Nausea/Vomiting Oxycodone/Acetaminophen (Percocet 5/325 Mg Tab) 1 tab PO Q4H PRN PRN Reason: Pain, moderate (4-7) Stop: 07/03/18 13:53 Last Admin: 06/30/18 20:29 Dose: 1 tab Potassium Chloride (K-Dur 20 Meq Er Tab) 20 meq PO DAILY [facility] Last Admin: 07/01/18 10:37 Dose: 20 meq Physical Exam - Head Exam Head Exam: ATRAUMATIC, NORMOCEPHALIC - Eye Exam Eye Exam: EOMI, PERRL - Neck Exam Neck exam: Negative for: Lymphadenopathy, Thyromegaly - Respiratory Exam Respiratory Exam: NORMAL BREATHING PATTERN. absent: Rales, Rhonchi, Wheezes - Cardiovascular Exam Cardiovascular Exam: REGULAR RHYTHM, +S1, +S2. absent: Gallop, Rubs, Systolic Murmur - GI/Abdominal Exam GI & Abdominal Exam: Normal Bowel Sounds, Soft, Tenderness. absent: Mass, Organomegaly Additional comments: Tenderness over laparoscopy incisions - Rectal Exam Rectal Exam: Deferred - Extremities Exam Extremities exam: Negative for: calf tenderness, pedal edema Results - Vital Signs Recent Vital Signs: Last Vital Signs Temp 98.2 F 07/01/18 07:48 Pulse 70 07/01/18 07:48 Resp 20 07/01/18 07:48 BP 126/73 11/29/18 07:48 Pulse Ox 95 07/01/18 07:48 - Labs Result Diagrams: 07/01/18 07:18 07/01/18 07:18 Labs: Laboratory Results - last 24 hr 06/30/18 06/30/18 07/01/18 16:22 20:53 07:08 WBC RBC Hgb Hct MCV MCH MCHC RDW Plt Count MPV Neut % (Auto) Lymph % (Auto) [place] % (Auto) Eos % (Auto) Baso % (Auto) Neut # (Auto) Lymph # (Auto) [place] # (Auto) Eos # (Auto) Baso # (Auto) Sodium Potassium Chloride Carbon Dioxide Anion Gap BUN Creatinine Est GFR ( Amer) Est GFR (Non-Af Amer) POC Glucose (mg/dL) 215 H 276 H 221 H Random Glucose Calcium Total Bilirubin AST ALT Alkaline Phosphatase Total Protein Albumin Globulin Albumin/Globulin Ratio 07/01/18 07/01/18 07/01/18 07:18 07:18 11:24 WBC 12.8 H RBC 3.86 L Hgb 11.2 L Hct 32.4 L MCV 84.0 MCH 28.9 MCHC 34.4 RDW 13.5 Plt Count 325 MPV 8.5 Neut % (Auto) 74.2 Lymph % (Auto) 13.8 L [place] % (Auto) 8.8 Eos % (Auto) 2.0 Baso % (Auto) 1.2 Neut # (Auto) 9.5 H Lymph # (Auto) 1.8 [place] # (Auto) 1.1 H Eos # (Auto) 0.3 Baso # (Auto) 0.2 Sodium 136 Potassium 3.3 L Chloride 103 Carbon Dioxide 26 Anion Gap 10 BUN 8 L Creatinine 0.8 Est GFR ( Amer) > 60 Est GFR (Non-Af Amer) > 60 POC Glucose (mg/dL) 286 H Random Glucose 251 H Calcium 7.5 L Total Bilirubin 0.5 AST 90 H D ALT 108 H D Alkaline Phosphatase 209 H Total Protein 5.9 L Albumin 2.9 L Globulin 3.0 Albumin/Globulin Ratio 1.0 Assessment & Plan (1) Elevated alkaline phosphatase level Assessment and Plan: Patient was admitted for abdominal pain and was determined to have acute cholecystitis. Liver enzymes were mildly elevated on admission, but MRCP showed no CBD stones. Recommend following LFTs. Status: Acute
[2018-07-01 16:44] VITALS: BP 139/74; PULSE 65; TEMP 98.5
--- NOTE | 2018-07-01 18:56 | CP.PCM.DIS ---
Provider - Provider Date of Admission: 06/29/18 20:25 Attending physician: Zach Sexton MD Consults: 06/29/18 21:05 General Surgery Consult Stat Comment: Consulting Provider: Raciel Echols Consulting Physician: Raciel Echols Reason for Consult: Cholecystitis 06/30/18 06:00 Gastroenterology Consult Routine Comment: Consulting Provider: Gustabo Caldwell Consulting Physician: Gustabo Caldwell Reason for Consult: Cholecystitis Time Spent in preparation of Discharge (in minutes): 30 Diagnosis - Discharge Diagnosis (1) Acute cholecystitis Status: Acute Hospital Course - Lab Results Lab Results: Micro Results 06/29/18 19:41 Urine,Clean Catch Urine Culture - Final Gram Positive Cocci 06/29/18 19:56 Blood Blood Culture - Preliminary NO GROWTH AFTER 24 HOURS 06/29/18 19:49 Blood Blood Culture - Preliminary NO GROWTH AFTER 24 HOURS 06/30/18 15:59 Body Fluid - Gallbladder Gram Stain - Final Most Recent Lab Values WBC 12.8 K/uL (4.8-10.8) H 07/01/18 07:18 RBC 3.86 Mil/uL (4.40-5.90) L 07/01/18 07:18 Hgb 11.2 g/dL (12.0-18.0) L 07/01/18 07:18 Hct 32.4 % (35.0-51.0) L 07/01/18 07:18 MCV 84.0 fL (80.0-94.0) 07/01/18 07:18 MCH 28.9 pg (27.0-31.0) 07/01/18 07:18 MCHC 34.4 g/dL (33.0-37.0) 07/01/18 07:18 RDW 13.5 % (11.5-14.5) 07/01/18 07:18 Plt Count 325 K/uL (130-400) 07/01/18 07:18 MPV 8.5 fL (7.2-11.7) 07/01/18 07:18 Neut % (Auto) 74.2 % (50.0-75.0) 07/01/18 07:18 Lymph % (Auto) 13.8 % (20.0-40.0) L 07/01/18 07:18 [place] % (Auto) 8.8 % (0.0-10.0) 07/01/18 07:18 Eos % (Auto) 2.0 % (0.0-4.0) 07/01/18 07:18 Baso % (Auto) 1.2 % (0.0-2.0) 07/01/18 07:18 Neut # (Auto) 9.5 K/uL (1.8-7.0) H 07/01/18 07:18 Lymph # (Auto) 1.8 K/uL (1.0-4.3) 07/01/18 07:18 [place] # (Auto) 1.1 K/uL (0.0-0.8) H 07/01/18 07:18 Eos # (Auto) 0.3 K/uL (0.0-0.7) 07/01/18 07:18 Baso # (Auto) 0.2 K/uL (0.0-0.2) 07/01/18 07:18 Neutrophils % (Manual) 75 % (50-75) 06/30/18 05:07 Band Neutrophils % 2 % (0-2) 06/30/18 05:07 Lymphocytes % (Manual) 7 % (20-40) L 06/30/18 05:07 Reactive Lymphs % 1 % (0-0) H 06/30/18 05:07 Monocytes % (Manual) 14 % (0-10) H 06/30/18 05:07 Eosinophils % (Manual) 1 % (0-4) 06/30/18 05:07 Platelet Estimate Normal (NORMAL) 06/30/18 05:07 PT 14.0 SECONDS (9.7-12.2) H 06/30/18 05:07 INR 1.3 06/30/18 05:07 APTT 35 SECONDS (21-34) H 06/30/18 05:07 Sodium 136 mmol/L (132-148) 07/01/18 07:18 Potassium 3.3 mmol/L (3.6-5.2) L 07/01/18 07:18 Chloride 103 mmol/L (98-107) 07/01/18 07:18 Carbon Dioxide 26 mmol/L (22-30) 07/01/18 07:18 Anion Gap 10 (10-20) 07/01/18 07:18 BUN 8 mg/dL (9-20) L 07/01/18 07:18 Creatinine 0.8 mg/dL (0.8-1.5) 07/01/18 07:18 Est GFR ( Amer) > 60 07/01/18 07:18 Est GFR (Non-Af Amer) > 60 07/01/18 07:18 POC Glucose (mg/dL) 248 mg/dL (65-110) H 07/01/18 15:58 Random Glucose 251 mg/dL (75-110) H 07/01/18 07:18 Lactic Acid 0.8 mmol/L (0.7-2.1) 06/29/18 18:05 Calcium 7.5 mg/dl (8.6-10.4) L 07/01/18 07:18 Total Bilirubin 0.5 mg/dL (0.2-1.3) 07/01/18 07:18 GGT 191 U/L (8-78) H 06/30/18 05:07 AST 90 U/L (17-59) H D 07/01/18 07:18 ALT 108 U/L (21-72) H D 07/01/18 07:18 Alkaline Phosphatase 209 U/L (38-126) H 07/01/18 07:18 Total Protein 5.9 g/dL (6.3-8.3) L 07/01/18 07:18 Albumin 2.9 g/dL (3.5-5.0) L 07/01/18 07:18 Globulin 3.0 gm/dL (2.2-3.9) 07/01/18 07:18 Albumin/Globulin Ratio 1.0 (1.0-2.1) 07/01/18 07:18 Lipase 389 U/L (23-300) H 06/29/18 18:01 Urine Color Yellow (YELLOW) 06/29/18 18:01 Urine Clarity Clear (Clear) 06/29/18 18:01 Urine pH 6.0 (5.0-8.0) 06/29/18 18:01 Ur Specific [place] 1.026 (1.003-1.030) 06/29/18 18:01 Urine Protein 2+ mg/dL (NEGATIVE) H 06/29/18 18:01 Urine Glucose (UA) 3+ mg/dL (Normal) H 06/29/18 18:01 Urine Ketones 1+ mg/dL (NEGATIVE) H 06/29/18 18:01 Urine Blood 2+ (NEGATIVE) H 06/29/18 18:01 Urine Nitrate Negative (NEGATIVE) 06/29/18 18:01 Urine Bilirubin Negative (NEGATIVE) 06/29/18 18:01 Urine Urobilinogen 4.0 mg/dL (0.2-1.0) 06/29/18 18:01 Ur Leukocyte Esterase Neg Aidan/uL (Negative) 06/29/18 18:01 Urine WBC (Auto) 1 /hpf (0-5) 06/29/18 18:01 Urine RBC (Auto) 14 /hpf (0-3) H 06/29/18 18:01 Ur Squamous Epith Cells < 1 /hpf (0-5) 06/29/18 18:01 Urine Opiates Screen Positive (NEGATIVE) H 06/29/18 18:01 Urine Methadone Screen Negative (NEGATIVE) 06/29/18 18:01 Ur Barbiturates Screen Negative (NEGATIVE) 06/29/18 18:01 Ur Phencyclidine Scrn Negative (NEGATIVE) 06/29/18 18:01 Ur Amphetamines Screen Negative (NEGATIVE) 06/29/18 18:01 U Benzodiazepines Scrn Negative (NEGATIVE) 06/29/18 18:01 U Oth Cocaine Metabols Negative (NEGATIVE) 06/29/18 18:01 U Cannabinoids Screen Negative (NEGATIVE) 06/29/18 18:01 Influenza Typ A,B (EIA) Negative for flu a/b (NEGATIVE) 06/29/18 19:22 Blood Type B POSITIVE 06/30/18 05:20 Antibody Screen Negative 06/30/18 05:20 - Hospital Course Hospital Course: Admitted regular floor. Placed NPO. IV antibiotiv. Seen by Dr. Echols s/p lap cholecystectomy. Doing well. D/c home Augmentin 500 mg PO TID io days, percocet 1 tablet PO TID as needed Discharge Exam - Head Exam Head Exam: ATRAUMATIC, NORMAL INSPECTION, NORMOCEPHALIC - Eye Exam Eye Exam: Normal appearance - ENT Exam ENT Exam: Normal Exam - Neck Exam Neck exam: Normal Inspection - Respiratory Exam Respiratory Exam: NORMAL BREATHING PATTERN - Cardiovascular Exam Cardiovascular Exam: REGULAR RHYTHM - GI/Abdominal Exam GI & Abdominal Exam: Soft - Extremities Exam Extremities exam: normal inspection Discharge Plan - Follow Up Plan Condition: STABLE Disposition: HOME/ ROUTINE Instructions: Cholecystectomy (DC), Cholecystitis (DC), Acute Abdominal Pain (DC) Referrals: Raciel Echols MD [Staff Provider] -
[2018-07-01] MEDS ORDERED: Pneumococcal 23-Valent Vaccine IM ONE (19:28)
[2018-07-01] MEDS ORDERED: Influenza Vaccine 60 MCG/0.5 ML SYR (3 yr & up) IM ONE (19:28)
--- NOTE | 2018-07-07 03:43 | OP ---
PROCEDURE DATE: 06/30/2018 PREOPERATIVE DIAGNOSIS: Acute calculous cholecystitis. POSTOPERATIVE DIAGNOSIS: Acute calculous cholecystitis. PROCEDURE PERFORMED: Laparoscopic cholecystectomy. FINDINGS: The gallbladder was completely covered by dense adhesions. The gallbladder was markedly distended with very thickened mcnamara, it was very fibrotic and contained multiple stones. DESCRIPTION OF PROCEDURE: Under general anesthesia, the patient was prepared and draped in the usual sterile fashion. A Veress needle was inserted into the umbilicus through which CO2 was insufflated to about 15 mmHg pressure. A 5-mm epigastric port and a 5-mm right upper quadrant ports were inserted. The patient was then placed in a reverse Trendelenburg position and was turned over towards the left side. The gallbladder was partially identified. Adhesions were taken down at the fundus, but it was very difficult to grab near the fundus, therefore it was partially emptied by aspirating about 50 mL of dark thick bile. A second 5-mm trocar in the right upper quadrant was also inserted. With slow blunt dissection, utilizing the suction tip and hydrosuction, the cystic duct was identified. It was transected between hemoclips, so were the smaller branches of the cystic duct. The gallbladder was then removed from the liver bed with electrocautery. No bleeding was noted, but there was oozing on the bed. The area was irrigated using copious amount of saline solution. Because of the large amount of bleeding noted during the procedure with some residual ooze, a drain was left in place for that through one of the right upper quadrant trocar sites. CO2 was then allowed to escape from the peritoneal cavity after extracting the gallbladder from the umbilical port. It was necessary to enlarge the incision, skin and fascia to allow for the passage of the huge gallbladder. The wounds were then closed utilizing multiple interrupted sutures of 0-Vicryl for the umbilicus and all the rest of the skin incision closed with subcuticular suture of 4-0 Monocryl. Estimated blood loss was about 150 mL. The patient tolerated the procedure well and left the operating room in good condition. Raciel Echols MD [facility] # [id number]
== END 2018-07-01 20:25 | disposition home or self-care (01) | DRG 419 ==
LOC: C.ER 16:47 → C.9E 20:25 → C.9S 06-30 13:25 → C.3T 06-30 17:47
PROVIDERS: ADMIT Internal Medicine; ATTEND Internal Medicine
PROC: 0FN44ZZ Release Gallbladder, Percutaneous Endoscopic Approach (ICD-10-PCS; 2018-06-30)
PROC: 0FT44ZZ Resection of Gallbladder, Percutaneous Endoscopic Approach (ICD-10-PCS; principal; 2018-06-30 14:15)
DX: K80.00 Calculus of gallbladder with acute cholecystitis without obstruction (principal); K82.8 Other specified diseases of gallbladder; E11.9 Type 2 diabetes mellitus without complications; Z79.84 Long term (current) use of oral hypoglycemic drugs